=== PATIENT | male | born 1935 | race Caucasian/White ===

== ENCOUNTER 2018-08-05 20:01 | Emergency (ER) | payer MEDICARE, BC, OTHER ==
--- NOTE | 2018-08-05 20:57 | ED ---
GI/ HPI - HPI Summary HPI Summary: Pt is a 83 y/o M presenting to the ED with a clogged catheter. He usually gets it changed every month and will be due for his next change on 08/19/2018, but tonight it stopped draining. - History of Current Complaint Chief Complaint: EDUrogenitalProblems Time Seen by Provider: 08/05/18 20:48 Stated Complaint: CATHETER ISSUE Hx Obtained From: Patient Onset/Duration: Started Hours Ago, Still Present Timing: Constant Severity: Moderate Current Severity: Moderate Pain Intensity: 5 Location of Pain: Groin Pain Characteristics: Cramping Associated Signs and Symptoms: Positive: Negative Aggravating Factor(s): Nothing Alleviating Factor(s): Nothing - Allergy/Home Medications Allergies/Adverse Reactions: Allergies Allergy/AdvReac Type Severity Reaction Status Date / Time No Known Allergies Allergy Verified 08/05/18 20:09 Home Medications: Home Medications Magnesium 400 mg PO DAILY 08/06/18 [History Confirmed 08/06/18] PMH/Surg Hx/FS Hx/Imm Hx Previously Healthy: No Endocrine/Hematology History: Reports: Hx Diabetes, Hx Thyroid Disease - HYPOTHYROIDISM Cardiovascular History: Reports: Hx Hypertension - ON MEDS, Hx Peripheral Vascular Disease - DUE TO SECONDARY DIABETES, Other Cardiovascular Problems/ Disorders - HYPERCHOLESTEROLEMIA Respiratory History: Reports: Hx Sleep Apnea - NO MACHINES, Other Respiratory Problems/Disorders - HX OF PNEUMONIA GI History: Reports: Hx Gastroesophageal Reflux Disease - ON MEDS, Hx Hiatal Hernia History: Reports: Hx Benign Prostatic Hyperplasia, Other Problems/ Disorders - ENLARGE PROSTATE, Denies: Hx Renal Disease Sensory History: Reports: Hx Cataracts - BILATERAL, Hx Contacts or Glasses - READING GLASSES Denies: Hx Hearing Aid Opthamlomology History: Reports: Hx Cataracts - BILATERAL, Hx Contacts or Glasses - READING GLASSES Neurological History: Reports: Other Neuro Impairments/Disorders - 3 MONTHS AGO - SYNCOPE EPISODE DUE TO LOW BLOOD SUGAR - Surgical History Surgery Procedure, Year, and Place: 1961 LEFT INGUNIAL HERNIA REPAIR, [facility] Hx Anesthesia Reactions: No Infectious Disease History: Unable to Obtain/Confirm Infectious Disease History: Denies: Traveled Outside the [place] in Last 30 Days - Family History Known Family History: Negative: Renal Disease, Respiratory Disease - Social History Alcohol Use: Occasionally Alcohol Amount: 2 beers in past month Substance Use Type: Reports: None Smoking Status (MU): Former Smoker Type: Cigarettes Amount Used/How Often: 2 PPD Length of Time of Smoking/Using Tobacco: 60 YEARS Have You Smoked in the Last Year: No Review of Systems Negative: Fever Negative: Vomiting Positive: other - catheter backup All Other Systems Reviewed And Are Negative: Yes Physical Exam - Summary Physical Exam Summary: Appearance: Well-appearing, Well-nourished, lying in bed comfortable Skin: Warm, dry, no obvious rash Eyes: sclera anicteric, no conjunctival pallor ENT: mucous membranes moist Neck: deferred Respiratory: No signs of respiratory distress Cardiovascular: Appears well perfused, pulses are nml Abdomen: deferred Musculoskeletal: Moving all 4 extremities without obvious discomfort Neurological: Awake and alert, mentation is normal, speech is fluent and appropriate Psychiatric: affect is normal, does not appear anxious or depressed Triage Information Reviewed: Yes Vital Signs On Initial Exam: Initial Vitals Temp Pulse Resp BP Pulse Ox 98.4 F 122 16 198/118 96 08/05/18 20:03 08/05/18 20:03 08/05/18 20:03 08/05/18 20:03 08/05/18 20:03 Vital Signs Reviewed: Yes Diagnostics - Vital Signs Vital Signs Temp Pulse Resp BP Pulse Ox 08/05/18 20:03 98.4 F 122 16 198/118 96 - Laboratory Lab Statement: Any lab studies that have been ordered have been reviewed, and results considered in the medical decision making process. GIGU Course/Dx - Diagnoses Provider Diagnoses: Urinary retention Discharge - Sign-Out/Discharge Documenting (check all that apply): Patient Departure Patient Received Moderate/Deep Sedation with Procedure: No - Discharge Plan Condition: Improved Disposition: HOME Patient Education Materials: Solorio Catheter Placement and Care (ED) Referrals: Session Sebastian GAYTAN [Primary Care Provider] - - Billing Disposition and Condition Condition: IMPROVED Disposition: Home - Attestation Statements Document Initiated by Scribe: Yes Documenting Scribe: Molly Chua Provider For Whom Tong is Documenting (Include Credential): Home Galarza MD. Scribe Attestation: Molly Resendiz scribed for Home Galarza MD. on 08/06/18 at 0239. Scribe Documentation Reviewed: Yes Provider Attestation: The documentation as recorded by the scribe, Molly O'Domenico accurately reflects the service I personally performed and the decisions made by me, Home Galarza MD. Status of Scribe Document: Viewed
[2018-08-06 00:50] VITALS: BP 161/93
== END 2018-08-06 00:50 | disposition home or self-care (01) ==
LOC: ED 20:01
DX: R33.9 Retention of urine, unspecified (principal); Y92.9 Unspecified place or not applicable; E11.9 Type 2 diabetes mellitus without complications; E03.9 Hypothyroidism, unspecified; I10 Essential (primary) hypertension; K21.9 Gastro-esophageal reflux disease without esophagitis; N40.0 Benign prostatic hyperplasia without lower urinary tract symptoms; Z87.891 Personal history of nicotine dependence
CPT/HCPCS: 99284

== ENCOUNTER 2018-11-04 22:52 | Emergency (ER) | payer MEDICARE, BC, OTHER ==
--- NOTE | 2018-11-05 00:39 | ED ---
GI/ HPI - HPI Summary HPI Summary: Patient with history of indwelling catheter 4 years complains of no urine production starting this afternoon. States sensation of pressure in lower abdomen as if he needs to urinate. Denies any other pain symptoms or injuries. - History of Current Complaint Chief Complaint: EDUrogenitalProblems Time Seen by Provider: 11/05/18 00:37 Stated Complaint: "CATHETER MAY BE PLUGGED/INCONTINENCE" PER PT Hx Obtained From: Patient Onset/Duration: Started Hours Ago Timing: Constant Severity: Moderate Current Severity: Moderate Pain Intensity: 5 Location of Pain: Suprapubic Pain Characteristics: Cramping Associated Signs and Symptoms: Positive: Negative - Allergy/Home Medications Allergies/Adverse Reactions: Allergies Allergy/AdvReac Type Severity Reaction Status Date / Time No Known Allergies Allergy Verified 08/05/18 20:09 PMH/Surg Hx/FS Hx/Imm Hx Endocrine/Hematology History: Reports: Hx Diabetes, Hx Thyroid Disease - HYPOTHYROIDISM Cardiovascular History: Reports: Hx Hypertension - ON MEDS, Hx Peripheral Vascular Disease - DUE TO SECONDARY DIABETES, Other Cardiovascular Problems/ Disorders - HYPERCHOLESTEROLEMIA Respiratory History: Reports: Hx Sleep Apnea - NO MACHINES, Other Respiratory Problems/Disorders - HX OF PNEUMONIA GI History: Reports: Hx Gastroesophageal Reflux Disease - ON MEDS, Hx Hiatal Hernia History: Reports: Hx Benign Prostatic Hyperplasia, Other Problems/ Disorders - ENLARGE PROSTATE, Denies: Hx Renal Disease Sensory History: Reports: Hx Cataracts - BILATERAL, Hx Contacts or Glasses - READING GLASSES Denies: Hx Hearing Aid Opthamlomology History: Reports: Hx Cataracts - BILATERAL, Hx Contacts or Glasses - READING GLASSES Neurological History: Reports: Other Neuro Impairments/Disorders - 3 MONTHS AGO - SYNCOPE EPISODE DUE TO LOW BLOOD SUGAR - Cancer History Cancer Type, 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 - Surgical History Surgery Procedure, Year, and Place: 1961 LEFT INGUNIAL HERNIA REPAIR, [place] Hx Anesthesia Reactions: No Infectious Disease History: No Infectious Disease History: Denies: Traveled Outside the [place] in Last 30 Days - Family History Known Family History: Negative: Renal Disease, Respiratory Disease - Social History Alcohol Use: Occasionally Alcohol Amount: 2 beers in past month Substance Use Type: Reports: None Smoking Status (MU): Former Smoker Type: Cigarettes Amount Used/How Often: 2 PPD Length of Time of Smoking/Using Tobacco: 60 YEARS Have You Smoked in the Last Year: No Review of Systems Constitutional: Negative Eyes: Negative ENT: Negative Cardiovascular: Negative Respiratory: Negative Gastrointestinal: Negative Genitourinary: Negative Musculoskeletal: Negative Skin: Negative Neurological: Negative Psychological: Normal All Other Systems Reviewed And Are Negative: Yes Physical Exam - Summary Physical Exam Summary: Abdomen soft nontender. Two hernias present, 1 umbilical, one lateral. Patient states hernias are pain free, have been present for years. No peripheral edema noted. Lung sounds clear to auscultation bilaterally. RRR. Triage Information Reviewed: Yes Vital Signs On Initial Exam: Initial Vitals Temp Pulse Resp BP Pulse Ox 99 F 109 20 163/112 93 11/04/18 22:55 11/04/18 22:55 11/04/18 22:55 11/04/18 22:55 11/04/18 22:55 Vital Signs Reviewed: Yes Appearance: Positive: Well-Appearing Skin: Positive: Warm Head/Face: Positive: Normal Head/Face Inspection Eyes: Positive: Normal Neck: Positive: Supple Respiratory/Lung Sounds: Positive: Clear to Auscultation Cardiovascular: Positive: Normal Abdomen Description: Positive: Nontender Musculoskeletal: Positive: Normal Neurological: Positive: Normal Psychiatric: Positive: Normal AVPU Assessment: Alert - [place] Coma Scale Best Eye Response: 4 - Spontaneous Best Motor Response: 6 - Obeys Commands Best Verbal Response: 5 - Oriented Coma Scale Total: 15 Diagnostics - Vital Signs Vital Signs Temp Pulse Resp BP Pulse Ox 11/04/18 22:55 99 F 109 20 163/112 93 - Laboratory Result Diagrams: 11/05/18 02:19 11/05/18 02:19 Lab Statement: Any lab studies that have been ordered have been reviewed, and results considered in the medical decision making process. GIGU Course/Dx - Course Course Of Treatment: Patient with history of indwelling catheter 4 years complains of no urine production starting this afternoon. States sensation of pressure in lower abdomen as if he needs to urinate. Denies any other pain symptoms or injuries. Physical exam:Abdomen soft nontender. Two hernias present, 1 umbilical, one lateral. Patient states hernias are pain free, have been present for years. No peripheral edema noted. Lung sounds clear to auscultation bilaterally. RRR. Triage vital signs unremarkable except for mild tachycardia. During exam patient BP was 202/127. BP resolved to normal limits when catheter was flushed. Positive urine flow after line was cleared. Labs from earlier today done and oncology unremarkable. UA positive for UTI. Patient has history of pseudomonas UTI. Patient given Rocephin 500 mg IM here in the ED. Rx for Cipro. Patient receiving chemotherapy treatment tomorrow. Patient advised to inform primary care and oncology the patient is taking Cipro for UTI due to possible pseudomonas infection. Cultures pending. Patient advised to have EKG monitoring while on Cipro as it may interact with cilostazol patient is taking. Risk of QTC prolongation. Patient understands and approves of plan. - Diagnoses Provider Diagnoses: UTI (urinary tract infection), Complication, blocked Solorio catheter Discharge - Sign-Out/Discharge Documenting (check all that apply): Patient Departure Patient Received Moderate/Deep Sedation with Procedure: No - Discharge Plan Condition: Stable Disposition: HOME Prescriptions: Ciprofloxacin HCl [Cipro] 500 mg PO BID 10 Days #20 tablet Patient Education Materials: Urinary Tract Infection in Men (ED), Solorio Catheter Placement and Care (ED) Referrals: Session Sebastian GAYTAN [Primary Care Provider] - Additional Instructions: Take antibiotics as directed. Follow-up with your primary care doctor and oncology for EKG monitoring while you are on Cipro. Return to the ED for any new or worsening symptoms. - Billing Disposition and Condition Condition: STABLE Disposition: Home
[2018-11-05 01:59] LABS: Urine Appearance Turbid; Urine Bacteria Absent (Absent); Urine Bilirubin Negative (Negative); Urine Blood 1+ (Negative); Urine Color Amber; Urine Glucose Negative (Negative); Urine Ketones Negative (Negative); Urine Nitrite Positive (Negative); Urine Protein 3+(>=500 mg/dL) (Negative); Urine Red Blood Cell 1+(3-5/hpf) (Absent); Urine Specific Gravity 1.013 (1.010-1.030); Urine Urobilinogen Negative (Negative); Urine White Blood Cell 3+(>20/hpf) (Absent)
[2018-11-05] MEDS ORDERED: cefTRIAXone VIAL(*) 1,000 MG VIAL IM ONE (02:21)
[2018-11-05] MEDS ORDERED: Lidocaine 1%** 5 ML VIAL ONE (02:31)
[2018-11-05 02:35] LABS: ABS Basophils 0 10^3/ul (0-0.2); ABS Eosinophils 0.2 10^3/ul (0-0.6); ABS Lymphocytes 1.3 10^3/ul (1.0-4.8); ABS Monocytes 0.6 10^3/ul (0-0.8); ABS Neutrophils 6.5 10^3/ul (1.5-7.7); ABS Nucleated RBC 0 10^3/ul; Eosinophil % 2.3 %; Hematocrit 37 % (42-52); Hemoglobin 12.1 g/dL (14.0-18.0); Lymphocyte % 15.2 %; Mean Corpuscular HGB Conc 33 g/dL (31-36); Mean Corpuscular Hemoglobin 27 pg (27-31); Mean Corpuscular Volume 83 fL (80-94); Mean Platelet Volume 7.9 fL (7.4-10.4); Nucleated Red Blood Cells % 0; Platelet Count 347 10^3/uL (150-450); Red Blood Count 4.44 10^6 /uL (4.18-5.48); Red Cell Distribution Width 18 % (10.5-15); White Blood Count 8.6 10^3/uL (3.5-10.8)
[2018-11-05 02:44] LABS: Albumin 3.2 g/dL (3.2-5.2); Albumin/Globulin Ratio 1.1 (1-3); BUN/Creatinine Ratio 12.1 (8-20); C Reactive Protein 19.48 mg/L (<8.01); EGFR African American 45.6 (>60); EGFR Non-African American 37.7 (>60); Potassium 4.5 mmol/L (3.5-5.0); Total Bilirubin 0.4 mg/dL (0.2-1.0); Total Protein 6.2 g/dL (6.4-8.9)
[2018-11-05 02:51] VITALS: BP 111/83
== END 2018-11-05 02:50 | disposition home or self-care (01) ==
LOC: ED 22:52
DX: N39.0 Urinary tract infection, site not specified (principal); T83.098A Other mechanical complication of other urinary catheter, initial encounter; Y84.6 Urinary catheterization as the cause of abnormal reaction of the patient, or of later complication, without mention of misadventure at the time of the procedure; K21.9 Gastro-esophageal reflux disease without esophagitis; Z87.891 Personal history of nicotine dependence; C09.9 Malignant neoplasm of tonsil, unspecified; C78.02 Secondary malignant neoplasm of left lung; E83.42 Hypomagnesemia; R53.83 Other fatigue; Z91.81 History of falling
CPT/HCPCS: 36415; 80053; 81003; 81015; 83605; 85025; 86140; 87077; 87086; 87186; 96372; 96374; 99282; J0696